=== PATIENT | female | born 1950 | race Caucasian/White ===

== ENCOUNTER 2017-12-02 13:33 | Emergency (ER) | payer MEDICARE, BC ==
[~2017-12-02] VITALS: Ht 160 cm; Wt 43.5 kg
[2017-12-02 13:35] VITALS: BP 144/93
[2017-12-02] MEDS ORDERED: LIDOCAINE 1%-EPI 1:100,000 20 ML VIAL TP ONE (14:30)
[2017-12-02] MEDS ORDERED: TDAP [DIPH/PERTUSSIS/TET] 0.5 ML VIAL IM ONE ×2 (14:30→14:37)
--- NOTE | 2017-12-02 14:31 | NUR ---
DR. PIETRO POTTER.
[2017-12-02] MEDS ORDERED: LIDOCAINE 1%-EPI 1:100,000 20 ML VIAL ONE (15:07)
--- NOTE | 2017-12-02 15:08 | NUR ---
DR. WESTBROOK PAGED 2ND TIME.
== END 2017-12-02 15:54 | disposition home or self-care (01) ==
LOC: ER 13:36
DX: S01.411A Laceration without foreign body of right cheek and temporomandibular area, initial encounter (principal); Z85.841 Personal history of malignant neoplasm of brain; W27.2XXA Contact with scissors, initial encounter; Y93.89 Activity, other specified; Y92.89 Other specified places as the place of occurrence of the external cause; Y99.8 Other external cause status
CPT/HCPCS: 12011; 90471; 90715; 99283; A4606; A6402; A6403; J3490; Z7610

== ENCOUNTER 2017-12-06 07:33 | Emergency (ER) | payer MEDICARE, BC ==
[~2017-12-06] VITALS: Ht 160 cm; Wt 43.5 kg
[2017-12-06 07:33] VITALS: BP 124/79
== END 2017-12-06 07:56 | disposition home or self-care (01) ==
LOC: ER 07:34
DX: S01.411D Laceration without foreign body of right cheek and temporomandibular area, subsequent encounter (principal); Z98.890 Other specified postprocedural states; X83.8XXD Intentional self-harm by other specified means, subsequent encounter
CPT/HCPCS: A4606; Z7502; Z7610

== ENCOUNTER 2018-05-14 18:13 | Emergency (ER) | END 2018-05-14 20:24 | disposition home or self-care (01) | DX: S52.612A Displaced fracture of left ulna styloid process, initial encounter for closed fracture (principal); S52.572A Other intraarticular fracture of lower end of left radius, initial encounter for closed fracture; W11.XXXA Fall on and from ladder, initial encounter; Y93.89 Activity, other specified; Y92.89 Other specified places as the place of occurrence of the external cause; Y99.8 Other external cause status ==